=== PATIENT | female | born 1945 | race Caucasian/White ===

== ENCOUNTER → 2023-12-19 14:51 | Outpatient (REF) | payer MEDICARE, OTHER, SELFPAY | LOC: RAD 14:51 | PROVIDERS: ATTENDING PHYSICIAN Urology; FAMILY PHYSICIAN Internal Medicine | DX: N32.81 Overactive bladder (principal); N39.0 Urinary tract infection, site not specified; K59.00 Constipation, unspecified | CPT/HCPCS: 76770; 76856 ==

== ENCOUNTER → 2024-01-02 08:19 | Outpatient (REF) | payer MEDICARE, OTHER, SELFPAY ==
[2024-01-02 09:04] LABS: % Basophils 0.7 % (0-2); % Eosinophils 2.8 % (0-6); % Immature Granulocytes 0.2 % (0-0.5); % Lymphocytes 36.5 % (20.5-51.1); % Monocytes 7.6 % (1.7-9.3); % Neutrophils 52.2 % (42.2-75.2); Absolute Eosinophils 0.1 10^3/uL (0-0.7); Absolute Lymphocytes 1.6 10^3/uL (1.2-3.4); Absolute Monocytes 0.3 10^3/uL (0.1-0.6); Absolute Neutrophils 2.3 10^3/uL (1.4-6.5); Hematocrit 44.4 % (37.0-47.0); Hemoglobin 14.8 g/dL (12.0-16.0); Mean Corp Hgb Conc. 33.3 g/dL (33.0-37.0); Mean Corpuscular Hgb 30.4 pg (27.0-31.0); Mean Corpuscular Volume 91.2 fL (81.0-99.0); Mean Platelet Volume 9.5 fL (7.4-10.4); Nucleated Red Blood Cells % 0 %; Platelet Count 242 10^3/uL (130-400); Red Blood Cell Count 4.87 10^6/uL (4.20-5.40); Red Cell Dist. Width 12.6 % (11.5-14.5); White Blood Cell Count 4.4 10^3/uL (4.8-10.8)
[2024-01-02 10:27] LABS: ALT (SGPT) 24 U/L (0-35); AST (SGOT) 24 U/L (14-36); Albumin 4.4 g/dl (3.5-5.0); Alkaline Phosphatase 83 U/L (38-126); Blood Urea Nitrogen 17 mg/dl (7-17); Calcium 9.8 mg/dl (8.4-10.2); Carbon Dioxide 29 mmol/L (22-30); Chloride 102 mmol/L (98-107); Glucose 93 mg/dl (70-99); HDL Cholesterol 89 mg/dl; LDL Cholesterol, Calculated 125 mg/dl; Potassium 4.3 mmol/L (3.5-5.1); Sodium 138 mmol/L (135-145); Total Bilirubin 0.5 mg/dl (0.2-1.3); Total Cholesterol 238 mg/dl (50-199); Total Protein 7.3 g/dl (6.3-8.2); Triglyceride 123 mg/dl (10-149); Very Low Density Lipoprotein 24 mg/dl (0-30); eGFR > 60.00
[2024-01-02 10:38] LABS: TSH 2.07 uIU/ml (0.47-4.68)
== END ==
LOC: REG 08:19
PROVIDERS: ATTENDING PHYSICIAN Internal Medicine
DX: Z00.00 Encounter for general adult medical examination without abnormal findings (principal); R53.83 Other fatigue; R63.4 Abnormal weight loss; E05.90 Thyrotoxicosis, unspecified without thyrotoxic crisis or storm; E78.5 Hyperlipidemia, unspecified
CPT/HCPCS: 36415; 80053; 80061; 84443; 85025

== ENCOUNTER → 2024-04-28 14:35 | Outpatient (REF) | payer MEDICARE, OTHER, SELFPAY | LOC: WDC 14:35 | PROVIDERS: ATTENDING PHYSICIAN Obstetrics & Gynecology Gynecology; FAMILY PHYSICIAN Internal Medicine | DX: Z12.31 Encounter for screening mammogram for malignant neoplasm of breast (principal) | CPT/HCPCS: 77063; 77067 ==

== ENCOUNTER 2024-09-23 12:15 | Emergency (ER) | payer MEDICARE, OTHER, SELFPAY ==
[2024-09-23 12:19] VITALS: BP 124/79
--- NOTE | 2024-09-23 13:52 | ED.GENMED ---
History of Present Illness
General
Chief Complaint: Fall
Time Seen by Provider: 09/23/24 13:02
History of Present Illness
History of Present Illness:
78-year-old female presents to the emergency department for evaluation of right ankle pain after an injury yesterday. Inversion/plantarflexion type injury. She is able to bear weight. No knee or hip pain.
Past History
Past History
ED Past Medical History: None
ED Past Surgical History: Orthopedic and Other (Breast surgery)
Social History
Tobacco: Non-smoker
Alcohol: None
Drug: None
Family History
Family History: Negative Early CAD
Review of Systems
Review of Systems
Allergies reviewed?: Yes
All Other Systems: ROS reviewed and negative except as documented in HPI and ROS
Phy Exam
Physical Exam
Physical Exam:
GEN: Well appearing, NAD, WDWN
HEENT: Oral mucosa moist, no scleral icterus
Cardiac: Regular rate
Lung: No respiratory distress, no tachypnea
MSK: No gross deformity or injuries. No significant swelling to the right ankle, mild tenderness to the anterior joint line as well as the distal fibula. No tenderness to the base of the fifth metatarsal or medial malleolus. Normal range of
motion.
Skin: Good color, no pallor or jaundice, no rashes
Neuro: AO x3, moves all extremities freely
Psych: Calm, cooperative
Course
Orders/Labs/Results
Orders:
Orders
09/23/24 12:22
Ankle, Right 3 view CR [CR Ankle - Right Min 3 Views *] Urgent
Comment:
Reason For Exam: injury
Vital Signs
Initial and Last Documented VS:
Initial Vital Signs
Temp Pulse Resp BP Pulse Ox
98.3 F 90 16 124/79 97
09/23/24 12:19 09/23/24 12:19 09/23/24 12:19 09/23/24 12:19 09/23/24 12:19
Last Documented Vital Signs
Temp Pulse Resp BP Pulse Ox
98.3 F 85 18 124/79 98
09/23/24 12:19 09/23/24 14:19 09/23/24 14:19 09/23/24 12:19 09/23/24 14:19
MDM/Problems Addressed
MDM/Problems Addressed:
Imaging unremarkable. No significant swelling to suggest major ankle sprain. Discussed supportive care
*Critical Care Note
Total Time (30-74mins, 75-104mins- exclusive of procedures): Not Applicable
ED Attending Note
-
Portions of this chart may have been created with voice recognition software.� Occasional wrong word or��sound alike� substitutions may have occurred due to the inherent limitations of voice recognition software.
Discharge Plan
Departure
Patient Disposition: Home (Routine Discharge)
Date of Disposition: 09/23/24
Time of Disposition: 13:54
Patient with high blood pressure during this ER visit?: No
Discharge Problem:
Mild sprain of right ankle
Instructions: Ankle sprain - ED discharge instructions
Prescriptions:
No Action
cyanocobalamin (vitamin B-12) [Vitamin B-12] 500 MCG tablet
500 mcg PO DAILY
calcium carbonate [calcium] 500 MG tablet
500 mg PO DAILY
venlafaxine 37.5 MG tablet
37.5 mg PO DAILY
coenzyme Q10 [Co Q-10] 100 MG capsule
100 mg PO DAILY
omega-3 fatty acids-fish oil [Fish Oil] 1,000 MG capsule
1 cap PO BID
Referrals:
Pillo Tran MD [Family Provider] -
Interventions
Interventions:
*Risk Screen - Suicide Last Done: 09/23/24 12:22
*General Assessment Last Done: 09/23/24 14:18
*Neglect/Abuse Screening Last Done: 09/23/24 12:22
*Nursing Disposition Last Done: 09/23/24 14:19
ED-Musculoskeletal Assessment Last Done: 09/23/24 14:16
ED- Neurological Assessment Last Done: 09/23/24 14:16
ED-Skin Assessment Last Done: 09/23/24 14:16
Discharge Date and Time
Discharge Date/Time: 09/23/24 14:21
Print Language: BULGARIAN
== END 2024-09-23 14:21 | disposition home or self-care (01) ==
LOC: EMR 12:15
PROVIDERS: EMERGENCY PHYSICIAN Emergency Medicine; FAMILY PHYSICIAN Internal Medicine
DX: S93.401A Sprain of unspecified ligament of right ankle, initial encounter (principal); X50.1XXA Overexertion from prolonged static or awkward postures, initial encounter
CPT/HCPCS: 99283; 73610

== ENCOUNTER → 2024-11-03 14:57 | Outpatient (REF) | payer MEDICARE, OTHER, SELFPAY ==
[2024-11-03 15:52] LABS: % Eosinophils 1.6 % (0-6); % Immature Granulocytes 0.2 % (0-0.5); % Lymphocytes 33.6 % (20.5-51.1); % Monocytes 8.2 % (1.7-9.3); % Neutrophils 55.4 % (42.2-75.2); Absolute Basophils 0.1 10^3/uL (0-0.2); Absolute Eosinophils 0.1 10^3/uL (0-0.7); Absolute Lymphocytes 1.6 10^3/uL (1.2-3.4); Absolute Monocytes 0.4 10^3/uL (0.1-0.6); Absolute Neutrophils 2.7 10^3/uL (1.4-6.5); Hematocrit 40.3 % (37.0-47.0); Hemoglobin 13.4 g/dL (12.0-16.0); Mean Corp Hgb Conc. 33.3 g/dL (33.0-37.0); Mean Corpuscular Volume 93.3 fL (81.0-99.0); Mean Platelet Volume 9.6 fL (7.4-10.4); Nucleated Red Blood Cells % 0 %; Platelet Count 206 10^3/uL (130-400); Red Blood Cell Count 4.32 10^6/uL (4.20-5.40); White Blood Cell Count 4.9 10^3/uL (4.8-10.8)
[2024-11-03 16:08] LABS: ALT (SGPT) 18 U/L (0-35); AST (SGOT) 20 U/L (14-36); Albumin 4.2 g/dl (3.5-5.0); Alkaline Phosphatase 77 U/L (38-126); Blood Urea Nitrogen 23 mg/dl (7-17); Calcium 9.9 mg/dl (8.4-10.2); Carbon Dioxide 30 mmol/L (22-30); Chloride 100 mmol/L (98-107); Glucose 81 mg/dl (70-99); Potassium 4.4 mmol/L (3.5-5.1); Sodium 137 mmol/L (135-145); Total Bilirubin 0.2 mg/dl (0.2-1.3); eGFR > 60.00
[2024-11-03 16:17] LABS: Intact PTH 65.3 pg/ml (13.6-85.8)
== END ==
LOC: REG 14:57
PROVIDERS: ATTENDING PHYSICIAN Student in an Organized Health Care Education/Training Program; FAMILY PHYSICIAN Internal Medicine; REFERRING PHYSICIAN Obstetrics & Gynecology Gynecology
DX: E55.9 Vitamin D deficiency, unspecified (principal); M25.551 Pain in right hip; M25.552 Pain in left hip; M81.0 Age-related osteoporosis without current pathological fracture; M54.9 Dorsalgia, unspecified; R29.890 Loss of height
CPT/HCPCS: 36415; 72040; 72072; 72100; 80053; 82652; 83970; 85025

== ENCOUNTER → 2024-12-24 11:52 | Outpatient (REF) | payer MEDICARE, OTHER, SELFPAY | LOC: RAD 11:52 | PROVIDERS: ATTENDING PHYSICIAN Student in an Organized Health Care Education/Training Program; FAMILY PHYSICIAN Internal Medicine | DX: E55.9 Vitamin D deficiency, unspecified (principal); M25.551 Pain in right hip; M25.552 Pain in left hip; M54.9 Dorsalgia, unspecified; M81.0 Age-related osteoporosis without current pathological fracture; R29.890 Loss of height | CPT/HCPCS: 77081 ==

== ENCOUNTER → 2024-12-28 12:32 | Outpatient (REF) | payer MEDICARE, OTHER, SELFPAY ==
[2024-12-28 13:53] LABS: Urine Albumin 2+ (Neg - Trace); Urine Bilirubin Negative (Negative); Urine Character Clear (Clear); Urine Color Yellow; Urine Glucose Negative (Negative); Urine Ketone Negative (Negative); Urine Leukocyte 2+ (Negative); Urine Nitrite Negative (Negative); Urine Occult Blood 4+ (Negative); Urine Urobilinogen Negative (Neg - 1+)
[2024-12-28 14:00] LABS: Urine Bacteria Few (Negative); Urine Squamous Cell 0-2 /LPF (Few)
== END ==
LOC: REG 12:32
PROVIDERS: ATTENDING PHYSICIAN Urology; FAMILY PHYSICIAN Internal Medicine
DX: N39.0 Urinary tract infection, site not specified (principal)
CPT/HCPCS: 81003; 81015; 87077; 87086; 87186

== ENCOUNTER → 2025-04-29 14:38 | Outpatient (REF) | payer MEDICARE, OTHER, SELFPAY | LOC: WDC 14:38 | PROVIDERS: ATTENDING PHYSICIAN Obstetrics & Gynecology Gynecology | DX: Z12.31 Encounter for screening mammogram for malignant neoplasm of breast (principal) | CPT/HCPCS: 77063; 77067 ==